=== PATIENT | female | born 2000 | race Caucasian/White ===

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

== ENCOUNTER 2025-03-20 07:32 | Emergency (ER) | payer OTHER, SELFPAY ==
--- NOTE | ~2025-03-20 | CT_ITS ---
CLINICAL HISTORY: abd pain diffuse CT abdomen and pelvis with contrast Comparison: None provided Findings: The lung bases are clear. Gallbladder and liver are within normal limits. No biliary dilation. Spleen, pancreas, and bilateral adrenal glands are within normal limits. Kidneys enhance symmetrically with symmetric bilateral excretion of contrast into the proximal ureters. No renal stones identified. No ascites. No retroperitoneal lymphadenopathy. Aorta is nonaneurysmal. IVC is patent. No bowel obstruction, pneumoperitoneum, or pneumatosis. Appendix is normal. IUD is positioned within the uterine fundus. Bladder is within normal limits. No acute osseous abnormality. No acute soft tissue abnormality. IMPRESSION: No acute intra-abdominal or pelvic abnormality. This document has been electronically signed by: Bong Storey MD on 03/20/2025 10:01:21
[2025-03-20 07:46] VITALS: BP 123/76; BP 130/84; PULSE 93; PULSE 94; RESP 18; TEMP 36.3; O2SAT 98; O2SAT 99; BMI 21.8
--- NOTE | 2025-03-20 08:29 | ED_ITS ---
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 Call for help because she had abdominal pain. The abdominal pain is generalized. No fever no chills. No chest pain or diaphoresis. Patient claims that she got so upset at the abdominal pain she had a pseudo-seizure. 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 He was then sent to the ED for further evaluation. No history of syncope. Related Data Home Medications ?Medication ?Instructions ?Recorded ?Confirmed acetaminophen 325 mg tablet 650 mg PO Q4H PRN Fever Or Pain 03/20/25 03/20/25 benzocaine 6 mg-menthol 10 mg 1 reagan mucous membrane Q2 -4H PRN 03/20/25 03/20/25 lozenges Smoking Cessation buspirone 10 mg tablet 10 mg PO TID 03/20/25 calcium carbonate 500 mg PO Q4H PRN Heartburn 03/20/25 03/20/25 carbamazepine 100 mg chewable 100 mg PO DAILY 03/20/25 03/20/25 tablet carbamazepine 200 mg tablet 400 mg PO BEDTIME 03/20/25 03/20/25 docusate sodium 100 mg capsule 100 mg PO BID PRN Const ipation 03/20/25 03/20/25 hydroxyzine HCl 10 mg tablet 10 mg PO DAILY 03/20/25 1 05/20/24 hydroxyzine HCl 10 mg tablet 20 mg PO BEDTIME 03/20/25 03/20/25 ibuprofen 400 mg tablet 400 mg PO Q8H PRN Pain (Scal e 03/20/25 03/20/25 Score 1-3) loperamide 2 mg tablet 2 mg PO Q6H PRN Loose Stool 03/20/25 03/20/25 melatonin 3 mg tablet 3 mg PO BEDTIME PRN Sleep 03/20/25 nicotine (polacrilex) 2 mg gum 2 mg buccal Q2H 5 03/20/25 nicotine 21 mg/24 hr daily 1 patch transdermal DAILY 1 05/20/24 03/20/25 transdermal patch ondansetron 4 mg disintegrating 4 mg PO Q6H PRN Vomiti ng 03/20/25 03/20/25 tablet quetiapine 25 mg tablet 25 mg PO BEDTIME 03/20/25 sertraline 100 mg tablet 100 mg PO DAILY 03/20/2506/13 trazodone 50 mg tablet 75 mg PO BEDTIME 03/20/25 Allergies Allergy/AdvReac Type Severity Reaction Status Date / Time No Known Allergies Allergy Verified 03/20/25 07:51 Review of Systems Review of Systems Positive abdominal pain Yes all other systems are reviewed and are negative [facility] Past Medical History Attestation statement: The following information was validated with the patient. Social History Social History Smoked in Last 30 Days: No Use of substances other than those prescribed or required for medical reasons: No Advance Directives: No Advance Directives Information Provided: Yes Patient : No Physical Exam ED Exam Exam: Appearance: Alert. Oriented X3. No acute distress. Eyes: Pupils equal, round and reactive to light. ENT: Pharynx normal. Neck: Normal inspection. Neck supple. No lymph nodes noted. No crepitus CVS: Normal heart rate and rhythm. Pulses normal. Normal S1 and S2 Respiratory: No respiratory distress. Breath sounds normal. No Wheezing. No rales Abdomen: Soft and nontender. No rigidity. No distention. good BS x4 Skin: Skin warm and dry. Normal skin color. Normal skin turgor. Extremities: No lower extremity edema. Neurovascular intact to all extremities. No Lacerations. No Rash Neuro: Oriented X 3. No motor deficit. No sensory deficit. Moving all extermities. No slurred speech Vital Signs: Vital Signs - 24 hr 03/20/25 07:46 03/20/25 09:01 Temperature 97.4 F Pulse Rate 94 110 H Respiratory Rate 18 24 H Blood Pressure 123/76 118/66 Pulse Oximetry 98 100 Oxygen Delivery Method Room Air Room Air BMI result Body Mass Index 21.8 Medical Decision Making Medical Decision Making MDM Narrative: Patient's CT scan of the abdomen is normal there is no evidence of obstruction no evidence of abscess no evidence of perforation. Patient's white count is 11.9. Hemoglobin is 12.5 is normal. Electrolytes unremarkable. test is negative. Vital signs are normal. My interpretation of her EKG showed a sinus rhythm heart rate is 70 [place] QRS QTC normal no acute ST segment elevation patient in no acute distress. I consulted the care team quickly. Patient is under a section 21 has to go back to [facility]. I told the patient the same. Will offer her food. Medications offered. Currently in stable condition. Differential Diagnosis Differential Diagnoses: The differential diagnosis associated with the presentation includes Nonspecific abdominal pain, anxiety Admission/Observation Consideration of admission/observation: Escalation of care including admission/observation considered Consult Healthcare Provider Management of the patient was discussed with: Paraprofessional Education Assistant (Care team) Lab Data [facility] Lab Attestation statement: I reviewed the patient's lab results. 03/20/25 08:36 03/20/25 08:36 Labs: Lab Results 03/20/25 Range/Units 08:36 WBC 11.9 H (4.8-10.8) X10*3/uL RBC 3.94 L (4.20-5.50) X10*6/uL Hgb 12.5 (12.0-16.0) g/dl Hct 35.5 L (37.0-47.0) % MCV 90.1 (80.0-98.0) fL MCH 31.7 (27.0-33.0) pg MCHC 35.2 H (31.0-35.0) g/dl RDW 12.7 (11.0-16.0) % Plt Count 242 (160-400) X10*3/uL MPV 9.6 (9.4-12.3) fL Immature Gran % (Auto) 0.3 (0.0-0.4) % Neut % (Auto) 88.6 H (45-73) % Lymph % (Auto) 7.7 L (20-40) % [place] % (Auto) 3.1 (2-11) % Eos % (Auto) 0.0 (0-4) % Baso % (Auto) 0.3 (0-2) % Lymph # (Auto) 0.9 L (1.2-4.9) X10*3/uL [place] # (Auto) 0.4 (0.1-1.2) X10*3/uL Eos # (Auto) 0.0 (0.0-0.4) X10*3/uL Baso # (Auto) 0.0 (0.0-0.2) X10*3/uL Abs Immat Gran (auto) 0.04 H (0.00-0.03) X10*3/uL Absolute Neuts (auto) 10.5 H (2.0-8.3) x10*3/uL Absolute Nucleated RBC 0.000 (0.0-0.012) X10*3/uL Nucleated RBC % (auto) 0.0 (0.0-0.2) /100WBC Sodium 140 (135-145) mmol/L Potassium 4.0 (3.3-5.1) mmol/L Chloride 107 (96-108) mmol/L Carbon Dioxide 20 L (22-29) mmol/L Anion Gap 17 (12-20) BUN 15 (9-16) mg/dL Creatinine 0.74 (0.5-1.4) mg/dL Estim Creat Clear Calc 89.9 Estimated GFR > 60 Random Glucose 83 (60-115) mg/dL Calcium 9.5 (8.4-10.2) mg/dL Total Bilirubin 0.5 (0.0-1.0) mg/dL Direct Bilirubin 0.2 (0.0-0.5) mg/dL AST 62 H (5-31) U/L ALT 71 H (0-31) U/L Alkaline Phosphatase 55 (39-117) U/L Total Protein 7.5 (6.5-8.0) g/dL Albumin 5.2 H (3.5-5.0) g/dL Lipase 23 (8-78) U/L Beta HCG, Quant < 2 mIU/mL Independent Interpretation I performed an independent interpretation of an: CT Scan (CT abdomen pelvis grossly negative) Radiology Impression Discussion of test interpretation with radiology: I have reviewed the radiologist's reading. External Record Review External record reviewed: Outpatient record Social Determinants Patient?s care significantly limited by Social Determinants of Health including: Low income, Problems related to primary support group and Unemployment Medications Administered Discontinued Medications Generic Name Dose Route Start Last Admin Trade Name Freq PRN Reason Stop Dose Admin Sodium Chloride 1,000 mls @ 999 mls/hr 03/20/25 08:30 03/20/25 08:37 Ns IV 03/20/25 09:30 999 mls/hr .Q1H1M ARLYN Administration Iohexol 100 ml 03/20/25 09:26 03/20/25 09:26 Iohexol 350 Mg/Ml 100 Ml Infus..Btl IV 03/20/25 09:27 75 ml ONCE ONE Administration Ketorolac Tromethamine 30 mg 03/20/25 08:20 03/20/25 08:38 Ketorolac Tromethamine 30 Mg/Ml Vial IVPUSH 03/20/25 08:21 30 mg ONCE ONE Administration Ondansetron HCl 4 mg 03/20/25 08:21 03/20/25 08:38 Ondansetron Hcl 4 Mg/2 Ml Vial IVPUSH 03/20/25 08:22 4 mg ONCE ONE Administration Discharge Plan Discharge Clinical Impression: Abdominal pain, Anxiety Patient Disposition: Home, Self-Care Prescriptions: No Action quetiapine 25 mg Tablet 25 mg PO BEDTIME acetaminophen 325 mg Tablet 650 mg PO Q4H PRN (Reason: Fever Or Pain) trazodone 50 mg Tablet 75 mg PO BEDTIME nicotine (polacrilex) 2 mg Gum 2 mg BUCCAL Q2H sertraline 100 mg Tablet 100 mg PO DAILY loperamide 2 mg Tablet 2 mg PO Q6H PRN (Reason: Loose Stool) melatonin 3 mg Tablet 3 mg PO BEDTIME PRN (Reason: Sleep) carbamazepine 200 mg Tablet 400 mg PO BEDTIME calcium carbonate 500 mg calcium (1,250 mg) Tablet 500 mg PO Q4H PRN (Reason: Heartburn) buspirone 10 mg Tablet 10 mg PO TID carbamazepine 100 mg Tablet,Chewable 100 mg PO DAILY ibuprofen 400 mg Tablet 400 mg PO Q8H PRN (Reason: Pain (Scale Score 1-3)) nicotine 21 mg/24 hr Patch 24 Hour 1 patch TRANSDERMAL DAILY docusate sodium 100 mg Capsule 100 mg PO BID PRN (Reason: Constipation) hydroxyzine HCl 10 mg Tablet 20 mg PO BEDTIME hydroxyzine HCl 10 mg Tablet 10 mg PO DAILY ondansetron [Zofran ODT] 4 mg Tablet,Disintegrating 4 mg PO Q6H PRN (Reason: Vomiting) benzocaine-menthol 6-10 mg Lozenge 1 reagan MUCOUS MEMBRANE Q2-4H PRN (Reason: Smoking Cessation) Print Language: [place]
[2025-03-20 08:41] LABS: MANUAL DIFF FLAG NO
--- NOTE | 2025-03-20 08:42 | ECG_ITS ---
Test Reason : SYNCOPE Blood Pressure : */* mmHG Vent. Rate : 84 BPM Atrial Rate : 84 BPM P-R Int : 126 ms QRS Dur : 78 ms QT Int : 386 ms P-R-T Axes : 74 75 55 degrees QTcB Int : 456 ms Sinus rhythm with marked sinus arrhythmia Otherwise normal ECG No previous ECGs available Referred By: Gayathri Atkins Electronically Signed By: CARLTON TUCKER
[2025-03-20 08:43] LABS: Hematocrit 35.5 % (37.0-47.0); Hemoglobin 12.5 g/dl (12.0-16.0); Imm Gran Abs Auto 0.04 X10*3/uL (0.00-0.03); Imm Gran Pct Auto 0.3 % (0.0-0.4); Lymphocytes Absolute Auto 0.9 X10*3/uL (1.2-4.9); Mean Corpuscular HGB Conc 35.2 g/dl (31.0-35.0); Mean Corpuscular Hemoglobin 31.7 pg (27.0-33.0); Mean Corpuscular Volume 90.1 fL (80.0-98.0); NRBC Abs Auto 0.000 X10*3/uL (0.0-0.012); NRBC Pct Auto 0.0 /100WBC (0.0-0.2); Platelet Count 242 X10*3/uL (160-400); Red Blood Count 3.94 X10*6/uL (4.20-5.50); White Blood Count 11.9 X10*3/uL (4.8-10.8)
--- NOTE | 2025-03-20 08:48 | PHA.MEDREC ---
Pharmacy Consult ? Medication Reconciliation Pharmacy has completed the medication reconciliation. Utilized list from [facility]
[2025-03-20 09:01] VITALS: BP 118/66; PULSE 110; RESP 24; O2SAT 100
[2025-03-20 09:09] LABS: Alanine Aminotransferase 71 U/L (0-31); Albumin Level 5.2 g/dL (3.5-5.0); Alkaline Phosphatase 55 U/L (39-117); Anion Gap 17 (12-20); Aspartate Amino Transferase 62 U/L (5-31); Blood Urea Nitrogen 15 mg/dL (9-16); Calcium 9.5 mg/dL (8.4-10.2); Carbon Dioxide 20 mmol/L (22-29); Chloride 107 mmol/L (96-108); Creatinine Clr Calc Pharmacy 89.9; Estimated Glomerular Filt Rate > 60; Lipase 23 U/L (8-78); Potassium 4.0 mmol/L (3.3-5.1); Sodium 140 mmol/L (135-145); Total Protein 7.5 g/dL (6.5-8.0)
[2025-03-20] MEDS: iohexoL 350 MG/ML 100 ML INFUS..BTL IV (09:26)
--- NOTE | 2025-03-20 10:59 | PC.NURSE ---
Report given to Ilya STEPHEN
[2025-03-20 11:02] VITALS: BP 121/57; PULSE 81; RESP 20; O2SAT 98
== END 2025-03-20 12:44 ==
PROVIDERS: Emergency Provider Emergency Medicine Emergency Medical Services; PCP Pediatrics
DX: R10.22 Pelvic and perineal pain left side (principal); R55 Syncope and collapse; F41.9 Anxiety disorder, unspecified; R11.0 Nausea; Z79.899 Other long term (current) drug therapy
CPT/HCPCS: 36415; 74177; 80048; 80076; 83690; 84702; 85025; 93005; 96361; 96374; 96375; 99285; J1885; J2405; Q9967

== ENCOUNTER → 2025-03-20 08:20 | Outpatient (BNV) | payer OTHER, SELFPAY | PROVIDERS: Emergency Provider Emergency Medicine Emergency Medical Services; PCP Pediatrics; Visit Provider Radiology Vascular & Interventional Radiology | DX: R10.9 Unspecified abdominal pain (principal) | CPT/HCPCS: 74177 ==

== ENCOUNTER → 2025-03-20 08:42 | Outpatient (BNV) | payer OTHER, SELFPAY | PROVIDERS: Emergency Provider Emergency Medicine Emergency Medical Services; PCP Pediatrics; Visit Provider Internal Medicine | DX: R55 Syncope and collapse (principal) | CPT/HCPCS: 93010 ==